=== PATIENT | male | born 1970 | race Caucasian/White ===

== ENCOUNTER 2024-02-12 14:30 | Outpatient (CLI) | payer BC | END 2024-02-12 14:31 | disposition home or self-care (01) | LOC: CSHULT 14:30 | PROVIDERS: ATTEND Internal Medicine | DX: R06.02 Shortness of breath (principal); I45.10 Unspecified right bundle-branch block; R00.0 Tachycardia, unspecified; I51.7 Cardiomegaly; I51.9 Heart disease, unspecified | CPT/HCPCS: 93306 ==

== ENCOUNTER 2024-09-06 09:38 | Outpatient (CLI) | payer BC | END 2024-09-06 09:39 | disposition home or self-care (01) | LOC: CSHSLEEP 09:38 | PROVIDERS: ATTEND Internal Medicine | DX: G47.33 Obstructive sleep apnea (adult) (pediatric) (principal); R53.83 Other fatigue; E66.9 Obesity, unspecified; Z68.41 Body mass index [BMI] 40.0-44.9, adult; R06.83 Snoring; I10 Essential (primary) hypertension | CPT/HCPCS: 95800 ==